=== PATIENT | male | born 1980 | race Caucasian/White ===

== ENCOUNTER → 2019-04-13 17:01 | Outpatient (CLI) | payer BC, SELFPAY ==
[2013-07-18 18:04] VITALS: BMI 35.2
--- NOTE | 2019-04-13 17:23 | RAD_ITS ---
STUDY: X-RAY - LEFT HAND REASON FOR EXAM: Male, 38 years old. Pain TECHNIQUE: 3 view(s) of the hand. COMPARISON: None. FINDINGS: There is no evidence of fracture or dislocation. 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 There are no radiodense foreign bodies. RAD/Hand Min 3 Views IMPRESSION: No fracture or dislocation. 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 Electronically Signed: Driss Rogers, at 17:39 EDT Tel , Service support ,
--- NOTE | 2019-04-13 17:23 | RAD_ITS ---
STUDY: X-RAY - LEFT WRIST REASON FOR EXAM: Male, 38 years old. Pain TECHNIQUE: 3 view(s) of the wrist were obtained. COMPARISON: None. FINDINGS: There is no evidence of fracture or dislocation. There are no significant degenerative changes. There are no radiodense foreign bodies. RAD/Wrist min 3 Views IMPRESSION: No fracture or dislocation. Electronically Signed: Driss Rogers, at 17:44 EDT Tel , Service support ,
== END ==
LOC: MTRAD 17:04
PROVIDERS: Referring Provider Physician Assistant; Visit Provider Physician Assistant
DX: S69.91XA Unspecified injury of right wrist, hand and finger(s), initial encounter (principal)
CPT/HCPCS: 73110; 73130